=== PATIENT | female | born 1975 | race Caucasian/White ===

== ENCOUNTER 2024-08-02 00:28 | Day surgery (SDC) | payer OTHER, SELFPAY ==
[2024-07-26 16:01] VITALS: BMI 30.7
[2024-08-02 07:47] VITALS: BP 108/54; PULSE 63; RESP 18; TEMP 36.1; O2SAT 100
[2024-08-02 07:51] LABS: BEDSIDEPREGUCG Negative (Negative)
--- NOTE | 2024-08-02 08:14 | P.PNAN_ITS ---
Anes - Initial Pre Proc Eval Procedure: Operation Date: 08/02/24 09:00 Proposed Procedures p Colonoscopy - Deon Starr DO Date/Time: 08/02/24 08:14 Surgeon: Deon Starr DO Pre Op Diagnosis: Screening for malignant neoplasm of colon Patient Data Age: 48 Gender: F Height: 1.75 m Weight: 93.9 kg Last Vital Signs Temp 36.1 C L 08/02/24 07:47 Pulse 63 08/02/24 07:47 Resp 18 08/02/24 07:47 BP 108/54 L 08/02/24 07:47 Pulse Ox 100 08/02/24 07:47 O2 Del Method Room Air 08/02/24 07:47 Allergies Allergy/AdvReac Type Severity Reaction Status Date / Time No Known Allergies Allergy Verified 08/02/24 07:46 Home Medications Medication Instructions Recorded Confirmed Type levothyroxine 100 mcg tablet 100 mcg PO DAILY 07/26/24 08/02/24 History naproxen 250 mg tablet 250 mg PO BID PRN Pain 07/26/24 08/02/24 History Laboratory Tests 08/02/24 07:47 POC Urine HCG, Qual Negative (Negative) Patient hx anesthesia problems: none Family hx anesthesia problems: none Results Review: All pre-operative results and documents have been reviewed as part of the pre- operative evaluation. [facility] Social History Social History Substance use: former Substance use type: amphetamines Living arrangements: incarcerated Anes - Eval Final PreProcedure Day of Procedure 08/02/24 08:14 Patient weight: overweight Heart: regular rate and rhythm Lungs: decreased breath sounds Airway: Mallampati scale class II Neurological: alert and oriented Last oral intake: >/= 8 hours ASA classification: III Emergent: no Anesthetic plan: proceed Anesthesia type and monitoring: general GIVS and standard monitoring Results Review: All pre-operative results and documents have been reviewed as part of the pre- operative evaluation. Informed Consent: The patient's anesthetic plan and its attendant risks and benefits were discussed with the patient/family/POA. Questions were solicited and answers provided to the satisfaction of the patient/family/POA.
[2024-08-02] MEDS: LACTATED RINGERS 1,000 ML 150 ML IV CONT (08:18)
--- NOTE | 2024-08-02 08:18 | P.HP_ITS ---
H&P: HPI History of Present Illness Date/Time: 08/02/24 08:18 Chief Complaint: positive fit test Narrative: this is a 48-year-old woman who presents for colonoscopy. She recently had a positive fit test. She has a family history of colon cancer in her sister. She denies any hematochezia or melena. Review of Systems Review of Systems: All systems reviewed & are unremarkable except as noted in HPI and below Constitutional: Constitutional: Denies chills, Denies fever(s), Denies headache(s) and Denies weight loss Eyes: Eyes: Denies change in vision ENT: Denies dizziness, Denies headache(s), Denies neck mass and Denies throat swelling Cardiovascular: Cardiovascular: Denies chest pain, Denies lightheadedness and Denies dyspnea Respiratory: Respiratory: Denies cough, Denies dyspnea and Denies wheezing Gastrointestinal: Gastrointestinal: Denies abdominal pain, Denies change in bowel habits, Denies nausea and Denies vomiting Genitourinary: Genitourinary: Denies hematuria and Denies dysuria Musculoskeletal: Musculoskeletal: Reports as per HPI Integumentary/Breasts: Skin/Breast: Reports as per HPI Neurologic: Denies dizziness and Denies headache(s) Allergic/Immunologic: Allergic/Immunologic: Denies throat swelling and Denies wheezing [facility] Social History Social History Substance use: former Substance use type: amphetamines Living arrangements: incarcerated Meds Home Medications and Allergies Home Medications Medication Instructions Recorded Confirmed Type levothyroxine 100 mcg tablet 100 mcg PO DAILY 07/26/24 08/02/24 History naproxen 250 mg tablet 250 mg PO BID PRN Pain 07/26/24 08/02/24 History Allergies Allergy/AdvReac Type Severity Reaction Status Date / Time No Known Allergies Allergy Verified 08/02/24 07:46 Vital Signs Vital Signs - 24 hr 08/02/24 07:47 Temperature 97 F L Pulse Rate 63 Respiratory Rate 18 Blood Pressure 108/54 L Pulse Oximetry 100 Oxygen Delivery Room Air Exam Const: General: no acute distress and alert Orientation/consciousness: patient oriented x3 HENMT: Head: normocephalic and atraumatic Ears: hearing grossly normal bilaterally Face/Nose/Sinus: Normal nares present Mouth: Yes Normal oral and palatal mucosa present Eyes: Periorbital: periorbital findings normal Sclera: sclerae normal EOM: EOMs intact bilaterally Neck: Neck: normal visual inspection, no lymphadenopathy and trachea midline Chest: Chest palpation & inspection: normal inspection of the chest Resp: Effort & Inspection: normal respiratory effort Auscultation: clear to auscultation bilaterally Cardio: Jugular venous distension: no JVD Rate: regular rate Rhythm: regular rhythm Heart sounds: S1 normal heart sound present and S2 normal heart sound present Peripheral pulses: Peripheral pulses 2+ throughout GI: Inspection: normal to inspection GI Palp: Yes Soft to palpation, No Tenderness to palpation present (GI), No Guarding due to palpation present (GI) and No Rebound tenderness present Percussion: Yes normal to percussion Auscultation: normal bowel sounds : General: Yes no CVA tenderness Back/Spine/Pelvis: Back: no CVA tenderness Neuro: General: patient oriented x3, no focal motor deficits and CN's II-XI intact bilaterally Cognition (Neuro): normal cognition Speech: normal speech Motor exam (neuro): 5/5 motor strength present throughout Extrem: General: capillary refill normal and no clubbing, cyanosis or edema Assessment and Plan Assessment and plan (1) Positive FIT (fecal immunochemical test): Code(s): R19.5 - Other fecal abnormalities Status: Acute Assessment and Plan: I have recommended colonoscopy. I have discussed the procedure, risks, benefits, and alternatives. Questions were answered. Patient is agreeable to proceed.
[2024-08-02 08:45] VITALS: BP 81/48; PULSE 60; RESP 18; O2SAT 98
[2024-08-02 08:55] VITALS: BP 86/48; PULSE 60; RESP 12; O2SAT 98
[2024-08-02 09:05] VITALS: BP 93/58; PULSE 51; RESP 12; O2SAT 100
== END 2024-08-02 09:09 | disposition home or self-care (01) ==
PROVIDERS: Anesthesiology; Visit Provider Surgery
PROC: 0DJD8ZZ Inspection of Lower Intestinal Tract, Via Natural or Artificial Opening Endoscopic (ICD-10-PCS; CPT 45378; principal; 2024-08-02 09:00)
DX: R19.5 Other fecal abnormalities (principal); Z80.0 Family history of malignant neoplasm of digestive organs
CPT/HCPCS: 45378; J2003; J2704; J7120